=== PATIENT | female | born 1980 | race Two or more races ===

== ENCOUNTER 2021-08-13 21:40 | Emergency (ER) | payer MEDICAID ==
[~2021-08-13] VITALS: Ht 157.5 cm; Wt 68.2 kg
[2021-08-13] MEDS ORDERED: IBUP-2070 PO (21:43)
[2021-08-13 22:26] VITALS: BP 133/91
[2021-08-13] MEDS ORDERED: NEOMYCIN/POLYMYXIN B/HYDROCORT 10 ML OTIC SUSPENSION AS ONE (22:30)
[2021-08-13] MEDS ORDERED: IBUPROFEN 600 MG TABLET PO ONE (22:30)
[2021-08-13] MEDS ORDERED: CEPHALEXIN MONOHYDRATE 500 MG CAPSULE PO ONE (22:30)
== END 2021-08-13 22:28 | disposition home or self-care (01) ==
LOC: EMS 21:40
DX: H60.12 Cellulitis of left external ear (principal); H60.92 Unspecified otitis externa, left ear
CPT/HCPCS: 99284; Z7502; Z7610